=== PATIENT | female | born 1935 | race Caucasian/White ===

== ENCOUNTER 2017-11-01 06:34 | Day surgery (SDC) | payer OTHER ==
[2017-11-01] MEDS ORDERED: MUPIROCIN 2% OINT 1 APPLIC/GM SYR NASAL (08:00)
[2017-11-01] MEDS: NS 1000 ML IV (08:00)
[2017-11-01] MEDS: POVIDONE IODINE 5% (ANTISEPSIS KIT) 4 APPLICATIONS EACH NARE (08:31)
[2017-11-01] MEDS: CHLORHEXIDINE GLUCONATE 2 % 1 PACK (2 CLOTHS) TOPICAL (08:31)
[2017-11-01] MEDS: MIDAZOLAM HCL 5 MG/ML VIAL (1 ML) (08:32)
[2017-11-01] MEDS: ceFAZolin 2 GM PREMIX 50 ML IV (09:19)
[2017-11-01] MEDS: VANCOMYCIN 1000 MG/NS 250 ML IV (09:19)
== END 2017-11-01 10:00 | disposition home or self-care (01) ==
LOC: HCAT 06:34 → HDIC 06:34 → HCAT 10:00
DX: R55 Syncope and collapse (principal); I65.29 Occlusion and stenosis of unspecified carotid artery; I25.119 Atherosclerotic heart disease of native coronary artery with unspecified angina pectoris; I11.9 Hypertensive heart disease without heart failure; I25.2 Old myocardial infarction; J44.9 Chronic obstructive pulmonary disease, unspecified; E78.5 Hyperlipidemia, unspecified; R07.89 Other chest pain; K21.9 Gastro-esophageal reflux disease without esophagitis; M81.0 Age-related osteoporosis without current pathological fracture; R42 Dizziness and giddiness; Z86.73 Personal history of transient ischemic attack (TIA), and cerebral infarction without residual deficits
CPT/HCPCS: 33282; 99152